=== PATIENT | male | born 1945 | race Caucasian/White ===

== ENCOUNTER 2017-07-07 09:24 | Inpatient (IN) | payer OTHER ==
[2017-06-08 14:22] VITALS: Ht 188 cm; Wt 135.2 kg
--- NOTE | 2017-06-08 14:39 | PAT Medication Instructions ---
Service Date Jun 08, 2017. Current Home Medication List Dulaglutide (Trulicity), 1 DOSE SQ JAN Ferrous Sulfate (Kp Ferrous Sulfate), 1 TAB PO QAM Glipizide (Glucotrol), 10 MG PO BID Insulin Detemir (Levemir), 2 UNITS SQ QPM Metformin Hcl (Glucophage), 1,000 MG PO BID Metoprolol Succ (Toprol Xl) (Toprol-Xl), 75 MG PO QAM Metoprolol Succ (Toprol Xl) (Toprol-Xl), 50 MG PO QPM Warfarin Sod (Jantoven), 1 DOSE PO UD Medication Instructions For Your Scheduled Surgery -Continue as directed: Dulaglutide (Trulicity), 1 DOSE SQ WEDNESDAY - Hold the following medications per your surgeon's instructions: Warfarin Sod (Jantoven), 1 DOSE PO UD - Hold the following medications 48 hours prior to surgery: Metformin Hcl (Glucophage), 1,000 MG PO BID - Hold the following medications the morning of surgery: Glipizide (Glucotrol), 10 MG PO BID Ferrous Sulfate (Kp Ferrous Sulfate), 1 TAB PO QAM - Take the following medications the morning of surgery with a sip of water: Metoprolol Succ (Toprol Xl) (Toprol-Xl), 75 MG PO QAM - Take the following medications as scheduled the night before surgery: Metoprolol Succ (Toprol Xl) (Toprol-Xl), 50 MG PO QPM Glipizide (Glucotrol), 10 MG PO BID Insulin Detemir (Levemir), 2 UNITS SQ QPM If you have any questions please call us at [phone] or [phone] or [phone]
[2017-06-08 15:22] LABS: BASO % 0.5 %; BASO ABS # 0.03 K/uL (0-0.2); COMPLETE YES; EOS % 2.5 %; HEMATOCRIT 40.1 % (42-52); IG% 0.5 %; LYMPH % 24.1 %; LYMPH ABS # 1.54 K/uL (1.2-3.4); MEAN CORPUSCULAR HEMOGLOBIN 31.3 pg (25-34); MEAN CORPUSCULAR HGB CONC 32.9 g/dl (32-36); MONO % 11.1 %; NEUT % 61.3 %; PLATELET COUNT 230 K/uL (130-400); RED BLOOD COUNT 4.22 M/uL (4.7-6.1); WHITE BLOOD COUNT 6.39 K/uL (4.8-10.8)
[2017-06-08 15:25] LABS: URINE APPEARANCE CLEAR (CLEAR); URINE BILIRUBIN NEG (NEG); URINE COLOR YELLOW; URINE NITRITE NEG (NEG); URINE PH 6.5 (4.5-7.5); UROBILINOGEN NEG (NEG); ZZUR CULT IF INDIC CLEAN CATCH NO
[2017-06-08 15:39] LABS: MANUAL MICROSCOPIC REQUIRED? NO; REVIEW REQ? NO
[2017-06-08 15:42] LABS: PARTIAL THROMBOPLASTIN RATIO 2.1; PROTHROMBIN TIME (PATIENT) 44.3 SECONDS (9.0-12.0)
[2017-06-08 15:50] LABS: BUN/CREATININE RATIO 15.1 (10-20); CREATININE 1.2 mg/dl (0.60-1.40); POTASSIUM 4.6 mmol/L (3.5-5.1)
[2017-06-08 15:57] LABS: INR 3.9 (0.9-1.1)
--- NOTE | 2017-06-08 16:01 | DIAGNOSTIC IMAGING REPORT ---
TWO VIEW CHEST CLINICAL HISTORY: Preoperative examination. FINDINGS: PA and lateral chest radiographs are compared to study dated 06/29/2016 and correlated with chest CT dated 07/03/2016. The heart is mildly enlarged and there is atherosclerotic calcification of the thoracic aorta. The pulmonary vasculature is noncongested. A calcified granuloma is again seen in the right upper lung. There is mild elevation of left hemidiaphragm with left basilar atelectasis. No airspace consolidation or pleural effusion is seen. There is no pneumothorax. The skeletal structures are osteopenic. Degenerative change is noted throughout the spine. IMPRESSION: Cardiomegaly with no active disease in the chest. Electronically signed by: Jefferson Eagle M.D. 06/08/2017 4:00 PM Dictated Date/Time: 06/08/2017 3:58 PM
--- NOTE | 2017-07-06 19:21 | HISTORY & PHYSICAL EXAMINATION ---
DATE OF ADMISSION: 07/07/2017 CHIEF COMPLAINT: Chronic right knee pain. HISTORY OF PRESENT ILLNESS: This is a 72-year-old male patient of Dr. Ledezma'javier complaining of chronic right knee pain, longstanding, now progressively getting worse. The patient has failed conservative treatment including anti-inflammatories, the use of Tylenol, and the use of a wrap. The patient is on Coumadin therapy. PAST MEDICAL HISTORY: Atrial fibrillation, sleep apnea, carpal tunnel syndrome, diabetes mellitus with insulin, osteoarthritis, and obesity. SOCIAL HISTORY: Nonsmoker, nondrinker. REVIEW OF SYSTEMS: The patient complains of chronic right knee pain, otherwise denies any shortness of breath, chest pain, nausea, vomiting, or any other joint complaints. FAMILY HISTORY: Noncontributory. MEDICATIONS: Include: 1. Metoprolol 25 mg daily. 2. Warfarin 1-1/2 tablets Wednesday and Wednesday, 1 tablet every other day. 3. Glipizide 10 mg b.i.d. 4. Metformin 1000 mg b.i.d. 5. Levemitz 1000mg bid daily. 6. trulitity 1.5 mg weekly. ALLERGIES: No known drug allergies. PHYSICAL EXAMINATION: GENERAL: Well-developed, well-nourished 72-year-old male patient, in no acute distress. He is alert and oriented x3 and pleasant. HEENT: Normocephalic, atraumatic. Extraocular motions are intact. Pupils are equal and reactive to light. HEART: Has an irregular heartbeat with a history of atrial fibrillation. LUNGS: Clear. ABDOMEN: Soft and nontender. Bowel sounds are present. EXTREMITIES: Right knee reveals limited range of motion of -5 to 115 degrees of range of motion and has a varus deformity. He has a mild effusion with crepitation. He has 5/5 strength and medial joint line tenderness. NEUROLOGICAL: Neurovascularly, he is intact in his right lower extremity. DIAGNOSES: Right knee end-stage osteoarthritis, history of atrial fibrillation, sleep apnea, carpal tunnel syndrome, diabetes mellitus with insulin, obesity. PLAN: The patient was advised of his diagnosis. Indications, risks, benefits, and postop course have all been reviewed. The patient wished to proceed with a right total knee arthroplasty. Necessary consent forms, preoperative testing and clearances will be obtained. ELVA
[~2017-07-07] VITALS: Ht 188 cm; Wt 135.2 kg
[2017-07-07] VITALS (8 sets, daily range): BP systolic 105–173; BP diastolic 65–95; PULSE 75–98; TEMP 36.6–36.9; O2SAT 93–97
[~2017-07-07 09:24] MED LIST: ACETAMINOPHEN 500 MG TAB PO SCH; BUPIVACAINE 0.25% 30 ML VIAL ONE; BUPIVACAINE 0.5 % 5 MG/1 ML PF 10ML VIAL ONE; CEFAZOLIN 3000MG IV PUSH 15 ML IV SCH; CeleBREX 200 MG CAP PO SCH; DULA0.5I SQ; FAMOTIDINE 20 MG TAB PO SCH; FERR1TAB13 PO; GABAPENTIN 300 MG CAP PO SCH; GLIP10TA9 PO; LACTATED RINGER'S 1000ML IV SCH; LVMI SQ; METF-384 PO; METO25TA3 PO; METOCLOPRAMIDE HCL 10 MG TAB PO SCH; ROPIVACAINE 5MG/ML 30 ML 150 MG, BUPIVACAINE 0.5% MPF INJ 30 ML, EpINEphrine HCL INJ 0.... INFIL SCH; WARF10TA4 PO
[2017-07-07] MEDS ORDERED: MIDAZOLAM HCL 1 MG/ML 2ML VIAL ONE (10:50)
[2017-07-07] MEDS ORDERED: FENTANYL CITRATE INJ 50 MCG/1 ML 2 ML VIAL ONE ×3 (10:50→14:15)
--- NOTE | 2017-07-07 10:53 | History & Physical Bridge Note ---
H&P Re-Evaluation Bridge Note: I have examined the patient, reviewed the History & Physical and in the interval since the performance of the History & Physical I have noted the following changes of clinical significance: No changes noted
[2017-07-07 10:54] LABS: PARTIAL THROMBOPLASTIN RATIO 1.2; PROTHROMBIN TIME (PATIENT) 11.1 SECONDS (9.0-12.0)
[2017-07-07] MEDS ORDERED: PROPOFOL IV EMULSION 10 MG/ML 20 ML VIAL IV ONE (10:54)
[2017-07-07] MEDS ORDERED: POVIDONE-IODINE OP SOLN 30 ML BTL ONE (12:53)
[2017-07-07] MEDS ORDERED: ORTHO JOINT ANESTHETIC ONE (12:53)
[2017-07-07] MEDS ORDERED: BACITRACIN 50000 UNIT VIAL ONE (12:53)
[2017-07-07] MEDS ORDERED: FLUMAZENIL 0.1 MG/1 ML 10 ML VIAL IV PRN (13:30)
[2017-07-07] MEDS ORDERED: ONDANSETRON INJ 2 MG/ML 2 ML VIAL IV PRN ×2 (13:30→15:45)
[2017-07-07] MEDS ORDERED: PROMETHAZINE HCL INJ 12.5 MG in SODIUM CHLORIDE 0.9% 50ML 50 ML IV PRN (13:30)
[2017-07-07] MEDS ORDERED: LABETALOL HCL IV 5 MG/ML 20ML IV PRN (13:30)
[2017-07-07] MEDS ORDERED: NALOXONE HCL 0.4 MG/1 ML VIAL/CARP IV PRN (13:30)
[2017-07-07] MEDS ORDERED: EpHEDrine SULFATE INJ 50 MG/ML AMP IV PRN (13:30)
[2017-07-07] MEDS ORDERED: HYDROmorphone INJ 1 MG/ML SYR IV PRN (13:30)
[2017-07-07] MEDS ORDERED: ATROPINE SULFATE 0.1 MG/ML 5ML SYR IV PRN (13:30)
[2017-07-07] MEDS ORDERED: LIDOCAINE HCL 2% 2 ML VIAL (20MG/ML) ONE (13:39)
[2017-07-07] MEDS ORDERED: PHENYLEPHRINE HCL INJ 10 MG/ML VIAL ONE (13:51)
--- NOTE | 2017-07-07 15:43 | [facility] Post Operative Brief Note ---
Immediate Operative Summary Operative Date Jul 07, 2017. Pre-Operative Diagnosis Right knee end-stage osteoarthritis,marvel ruiz Post-Operative Diagnosis Same Procedure(s) Performed Right total knee athroplasty Surgeon Dr Ledezma Veterinary Laboratory Technician Surgeon(s) Saurabh Thomson PA-C Estimated Blood Loss 25 ML Findings severe tricompartmental djd Specimens A. Right knee- bone and tissue Drains 2 hemovac Anesthesia general and regional and orthomix Complication(s) None Disposition Recovery Room / PACU
[2017-07-07] MEDS ORDERED: TRAMADOL HCL 50 MG TAB PO PRN (15:45)
[2017-07-07] MEDS ORDERED: DEXTROSE 50% 50 ML SYR IV PRN (15:45)
[2017-07-07] MEDS ORDERED: ZOLPIDEM TARTRATE 5 MG TAB PO PRN (15:45)
[2017-07-07] MEDS ORDERED: WARFARIN SOD PO SCH (15:45)
[2017-07-07] MEDS ORDERED: GLUCOSE 40% GEL 15 GM TUBE PO PRN (15:45)
[2017-07-07] MEDS ORDERED: CEFAZOLIN IV 2,000 MG in DEXTROSE 5% 50ML 50 ML IV SCH (15:45)
[2017-07-07] MEDS ORDERED: GLUCAGON FOR INJ 1 MG VIAL SQ PRN (15:45)
[2017-07-07] MEDS ORDERED: MoRPHine SULFATE 2 MG/ML CARP IV PRN (15:45)
[2017-07-07] MEDS ORDERED: MAGNESIUM HYDROXIDE SUSP 30 ML UDC PO PRN (15:45)
[2017-07-07] MEDS ORDERED: GLUCOSE 10 TABS/TUBE PO PRN (15:45)
[2017-07-07] MEDS ORDERED: SOD PHOSPHATE/SOD BIPHOSPHATE ENEMA 132 ML BTL PR PRN (15:45)
[2017-07-07] MEDS ORDERED: BISACODYL 10 MG SUPP PR PRN (15:45)
[2017-07-07] MEDS ORDERED: METOCLOPRAMIDE HCL INJ 5 MG/ML 2 ML VIAL IV PRN (15:45)
--- NOTE | 2017-07-07 16:07 | Anesthesiology Progress Note ---
Anesthesia Post Op Note Date & Time Jul 07, 2017 at 16:07 Vital Signs Pain Intensity: 3 Vital Signs Past 12 Hours Date Time Temp Pulse Resp B/P (MAP) Pulse Ox O2 Delivery O2 Flow Rate FiO2 07/07/17 15:55 87 16 147/82 95 Nasal Cannula 3 07/07/17 15:45 36.3 93 12 130/71 97 Oxymask 10 07/07/17 15:35 36.3 84 12 130/70 97 Oxymask 10 07/07/17 10:24 36.8 95 18 161/95 96 Room Air Notes Mental Status: alert / awake / arousable, participated in evaluation Pt Amnestic to Procedure: Yes Nausea / Vomiting: adequately controlled Pain: adequately controlled Airway Patency, RR, SpO2: stable & adequate BP & HR: stable & adequate Hydration State: stable & adequate Anesthetic Complications: no major complications apparent
--- NOTE | 2017-07-07 16:08 | DIAGNOSTIC IMAGING REPORT ---
R KNEE 1 OR 2 VIEWS ROUTINE CLINICAL HISTORY: AP/LATERAL IN PACU RIGHT KNEE postoperative COMPARISON: None. DISCUSSION: Anatomic alignment status post total right knee replacement. Good contact between prosthetic and underlying bone. Surgical drains are in position. Expected soft tissue postoperative change. IMPRESSION: Anatomic alignment status post total right knee replacement The above report was generated using voice recognition software. It may contain grammatical, syntax or spelling errors. Electronically signed by: Saurabh Mireles M.D. 07/07/2017 4:07 PM Dictated Date/Time: 07/07/2017 4:07 PM
[2017-07-07] MEDS ORDERED: MoRPHine SULFATE 4 MG/ML 1 ML CARP\\VIAL IV PRN (16:45)
[2017-07-07] MEDS: INSULIN ASPART 100 UNITS/ML 3 ML PEN SC SCH ×3 (17:15→22:21)
[2017-07-07] MEDS ORDERED: WARFARIN SOD 7.5 MG TAB PO ONE (18:30)
[2017-07-07] MEDS: SODIUM CHLORIDE 0.9% 1000ML 1,000 ML IV SCH (18:47)
[2017-07-07] MEDS ORDERED: PNEUMOCOCCAL ADMINISTRATION CHARGE ONE (20:00)
[2017-07-07] MEDS ORDERED: PNEUMOCOCCAL POLYSACCHARIDES 25 MCG/0.5 ML VIAL/SYR IM. ONE (20:00)
--- NOTE | 2017-07-07 20:41 | Progress Note ---
Subjective Date of Service: Jul 07, 2017. Subjective Pt evaluation today including: conversation w/ patient, physical exam, chart review, lab review, review of inpatient medication list feeling good overall no significant pain no trouble w DM or afib no complaints Review of Systems all other ROS otherwise negative except for as above Objective Vital Signs Date Time Temp Pulse Resp B/P (MAP) Pulse Ox O2 Delivery O2 Flow Rate FiO2 07/07/17 19:54 36.7 75 16 121/70 (87) 97 Nasal Cannula 3.0 07/07/17 18:54 36.7 98 18 118/72 (87) 95 Nasal Cannula 3.0 07/07/17 17:52 36.9 95 16 114/79 (91) 96 Nasal Cannula 3.0 07/07/17 17:25 36.6 89 16 145/77 (99) 97 Nasal Cannula 2.0 07/07/17 16:51 36.8 96 16 173/65 (101) 97 Nasal Cannula 2.0 07/07/17 16:50 97 Nasal Cannula 2.0 07/07/17 16:50 97 Nasal Cannula 2.0 07/07/17 16:35 98 16 133/74 96 Nasal Cannula 2 07/07/17 16:25 98 16 134/68 96 Nasal Cannula 2 07/07/17 16:15 98 16 117/71 96 Nasal Cannula 2 07/07/17 16:05 36.5 92 16 156/68 95 Nasal Cannula 2 07/07/17 15:55 87 16 147/82 95 Nasal Cannula 3 07/07/17 15:45 36.3 93 12 130/71 97 Oxymask 10 07/07/17 15:35 36.3 84 12 130/70 97 Oxymask 10 07/07/17 10:24 36.8 95 18 161/95 96 Room Air Physical Exam General Appearance: no apparent distress Eyes: EOMI ENT: hearing grossly normal Neck: trachea midline Respiratory/Chest: no respiratory distress, no accessory muscle use Extremities: normal range of motion Neurologic/Psychiatric: documentation designer II-XII nml as tested, alert, normal mood/affect Skin: normal color, warm/dry Laboratory Results Last 24 Hours Test 07/07/17 10:08 07/07/17 10:15 07/07/17 15:53 07/07/17 18:48 Bedside Glucose 144 mg/dl 165 mg/dl 264 mg/dl Prothrombin Time 11.1 SECONDS Prothromb Time International Ratio 1.0 Activated Partial Thromboplast Time 30.6 SECONDS Partial Thromboplastin Ratio 1.2 Assessment and Plan afib - continue metoprolol for rate control, resuming warfarin anticoagulation DM - sugars all reasonable except for one late high - tighten carb ratio, continue current care otherwise and follow. A1c 7.0 PITO - CPAP DVT proph - anticoagulation
--- NOTE | 2017-07-07 21:24 | OPERATIVE REPORT ---
DATE OF OPERATION: 07/07/2017 INDICATION FOR PROCEDURE: The patient is a 72-year-old male who presents with chronic progressive osteoarthritis in his right knee. He has already had a successful left knee replacement and did well with that. The right knee, he has [id number] both patellofemoral joint and in the medial compartment and he has lateral patellar tracking with patellofemoral malalignment. He also has Cristina-Schlatter's disease. PREOPERATIVE DIAGNOSES: End-stage tricompartmental osteoarthritis right knee, patellofemoral malalignment, Cristina-Schlatter's disease. POSTOPERATIVE DIAGNOSES: End-stage tricompartmental osteoarthritis right knee, patellofemoral malalignment, Cristina-Schlatter's disease. PROCEDURE: Right total knee arthroplasty including lateral release. SURGEON: Tae Ledezma MD. CONCRETE PIPE MAKING MACHINE OPERATOR: CAMILA Vera. ANESTHESIA: Attempted spinal followed by general, adductor nerve block and Orthomix injection. DRAINS: Two Hemovac. ESTIMATED BLOOD LOSS: 25 mL. OPERATIVE PROCEDURE: The patient was taken to the operating room, anesthetized under a general anesthetic, he already had an adductor nerve block in the holding area. He was placed supine on the operating room table and pneumatic tourniquet was placed on his right upper thigh. His right lower extremity was examined under anesthesia. He had a 15 degree flexion contracture with flexion to about 115 degrees. He had Magna-Schlatter's disease prominent at the tibial tubercle. He did have a moderate effusion. He had no gross instability with a stiff knee. His right lower extremity was prepped and draped with ChloraPrep. The leg was elevated, exsanguinated with Esmarch bandage. Pneumatic tourniquet was raised to 350 mmHg. Anterior incision was made across the right knee. Skin was incised sharply. Subcutaneous flaps were elevated. The patient had a thickened prepatellar bursitis which was chronic over the Magna-Schlatter's and patellar tendon area. Some of this thickened bursa was resected. He also had some chronic scarred fat tissue. An incision was made through the medial retinaculum and extended up in the mid third of the quadriceps tendon and extended down to the medial tibial tubercle. Intraarticular findings demonstrated he had severe tricompartmental DJD, [id number] in the medial compartment with some bone loss. He had [id number] in the patellofemoral joint with some bone loss of the lateral tracking patella. He had tricompartmental disease. He had notch stenosis. He had a chronic ACL tear. He had chronic medial meniscus tear. A [employer] Journey 2.0, total knee arthroplasty system using Appfolio MR templating, templating it for a size 8 femur and 7 tibia. I exposed the knee by excising the scar and patellar fat pad and excising the meniscal remnants and excising the PCL. We had to excise some scarred synovium in the suprapatellar pouch area and some of the fat pad over the anterior femur for placement of the component. Lateral synovial bands were released. The femur was exposed with retractors. The custom femoral cutting block was pinned in position. The distal femoral cut was made. Then we were able to fully extend the knee, mildred the patella to do a subperiosteal peel lateral release. Exposed the patellar bone and some mild bone loss in the lateral side of the patella. Patella width was measured and width was reproduced using a freehand cut technique. The patella was sized for a 41 patella. I drilled the holes for the patella component. Any excess lateral facet was beveled off to prevent any impingement. All osteophytes removed around the patella. The femur was re-exposed, the 5-in-1 cutting block was placed. The anterior, posterior and chamfer cuts were made for the size 8 femur. Then the tibia was subluxed with some difficulties due to a very stiff knee and a lot of large osteophytes on the posterior tibia. The custom tibial cutting block was placed and then the proximal tibial cut was made. Then we used the lamina bag worker to verify ligamentous balance in extension and flexion. The tibia was exposed and then a 7 tibial trial was externally rotated in line with the tibial tubercle, pinned in position. The punch for the stem was used and then the 8 femoral trial was inserted, centered and the notch cutting device was used and a collet was placed and 12 insert gave balanced ligaments through full range of motion and patella still had some lateral liftoff in maximum flexion, so I had to do a formal lateral release and the lateral retinaculum was released leaving the synovium intact and this allowed the patella track centrally through full range of motion. The trials were removed. The Orthomix anesthetic cocktail was injected per protocol. The knee was copiously irrigated with pulsatile lavage antibiotic solution with bacitracin. Then, the final components was cemented with Simplex G cement. The final components were the [employer] Journey 2.0 right posterior stabilized size 8 Oxinium femoral component, the 7 tibial baseplate, the 12 mm high flex posterior stabilized poly insert and a 41 mm patella domed component. While cement cured, the knee was irrigated with a Betadine soak. The knee was copiously irrigated with antibiotic solution and bacitracin after cement cured. Two drains were brought out laterally and connected to 2 Hemovac. The quadriceps tendon and medial retinaculum were closed with [id number] #1 Vicryl sutures. The knee was taken through a full range of motion and appeared secure. The subcutaneous tissue was closed with interrupted 2-0 Vicryl sutures, skin closed with gabbi. Sterile dressings applied including Silverlon dressing. The patient tolerated the procedure well. He had about 25 mL of blood loss. Saurabh Thomson PA-C, was my first line production supervisor and he functioned as first line production supervisor for the entire procedure. He assisted in patient positioning, prepping, draping, leg positioning, soft tissue retraction, instrument management and assisted in the subcutaneous skin closure and will participate in the postoperative care of the patient. I attest to the content of the Intraoperative Record and any orders documented therein. Any exception s are noted below.
[2017-07-07] MEDS: DOCUSATE SODIUM 100 MG CAP PO SCH (22:10)
[2017-07-07] MEDS: METOPROLOL SUCC 50MG EXT REL TAB PO SCH (22:12)
[2017-07-07] MEDS: ACETAMINOPHEN 500 MG TAB PO SCH (22:15)
[2017-07-07] MEDS: CEFAZOLIN IV 2,000 MG in SYRINGE 0 ML IV SCH (22:21)
[2017-07-08] MEDS: SODIUM CHLORIDE 0.9% 1000ML 1,000 ML IV SCH ×2 (02:26→11:53)
[2017-07-08 04:00] VITALS: BP 116/72; PULSE 76; TEMP 36.6; O2SAT 98
[2017-07-08] MEDS: ACETAMINOPHEN 500 MG TAB PO SCH ×3 (05:36→22:22)
[2017-07-08] MEDS: CEFAZOLIN IV 2,000 MG in SYRINGE 0 ML IV SCH (05:43)
[2017-07-08 06:10] LABS: HEMATOCRIT 33.7 % (42-52); MEAN CORPUSCULAR HEMOGLOBIN 31.7 pg (25-34); MEAN CORPUSCULAR HGB CONC 32.3 g/dl (32-36); MEAN PLATELET VOLUME 9.9 fL (7.4-10.4); PLATELET COUNT 215 K/uL (130-400); RED BLOOD COUNT 3.44 M/uL (4.7-6.1); WHITE BLOOD COUNT 12.85 K/uL (4.8-10.8)
[2017-07-08 06:39] LABS: PROTHROMBIN TIME (PATIENT) 10.9 SECONDS (9.0-12.0)
[2017-07-08 06:40] LABS: BUN/CREATININE RATIO 19.6 (10-20); CALCIUM 8.1 mg/dl (8.5-10.1); CREATININE 1.45 mg/dl (0.60-1.40); POTASSIUM 4.6 mmol/L (3.5-5.1)
[2017-07-08 07:35] VITALS: BP 135/74; PULSE 86; TEMP 36.6; O2SAT 95
[2017-07-08] MEDS: TRULICITY: ORDER AWAITING ACTION SCH ×3 (08:00→16:00)
--- NOTE | 2017-07-08 08:01 | Orthopedic Progress Note ---
Orthopedic Progress Note Date of Service Jul 08, 2017. Subjective Post OP Day: 1 Reports: feeling well Objective N/V intact, dressing C/D/I (Hemovac in place), toes mobile Date Time Temp Pulse Resp B/P (MAP) Pulse Ox O2 Delivery O2 Flow Rate FiO2 07/08/17 04:00 36.6 76 18 116/72 (87) 98 Room Air 07/08/17 00:30 Room Air 07/07/17 23:05 36.8 95 18 105/69 (81) 93 Room Air 07/07/17 19:54 36.7 75 16 121/70 (87) 97 Nasal Cannula 3.0 07/07/17 18:54 36.7 98 18 118/72 (87) 95 Nasal Cannula 3.0 07/07/17 17:52 36.9 95 16 114/79 (91) 96 Nasal Cannula 3.0 07/07/17 17:25 36.6 89 16 145/77 (99) 97 Nasal Cannula 2.0 07/07/17 16:51 36.8 96 16 173/65 (101) 97 Nasal Cannula 2.0 07/07/17 16:50 97 Nasal Cannula 2.0 07/07/17 16:50 97 Nasal Cannula 2.0 07/07/17 16:35 98 16 133/74 96 Nasal Cannula 2 07/07/17 16:25 98 16 134/68 96 Nasal Cannula 2 07/07/17 16:15 98 16 117/71 96 Nasal Cannula 2 07/07/17 16:05 36.5 92 16 156/68 95 Nasal Cannula 2 07/07/17 15:55 87 16 147/82 95 Nasal Cannula 3 07/07/17 15:45 36.3 93 12 130/71 97 Oxymask 10 07/07/17 15:35 36.3 84 12 130/70 97 Oxymask 10 07/07/17 10:24 36.8 95 18 161/95 96 Room Air Laboratory Results 24 Hours: Test 07/07/17 10:15 07/08/17 05:39 Prothromb Time International Ratio 1.0 1.0 Prothrombin Time 11.1 SECONDS 10.9 SECONDS Hematocrit 33.7 % Hemoglobin 10.9 g/dL Assessment & Plan Assessment: 72 yo male stable POD #1 s/p right TKA Plan: 1. Med management 2. DVT prophylaxis- Coumadin, SCDs 3. PT/OT 4. D/C planning- home w/ HH
[2017-07-08] MEDS: FERROUS SULFATE 325 MG TAB PO SCH (08:23)
[2017-07-08] MEDS: MULTIVITAMIN TAB PO SCH (08:23)
[2017-07-08] MEDS: DOCUSATE SODIUM 100 MG CAP PO SCH ×2 (08:23→21:45)
[2017-07-08] MEDS: PANTOprazole SOD 40 MG TAB PO SCH (08:24)
[2017-07-08] MEDS: METOPROLOL SUCC 25MG EXT REL TAB PO SCH (08:25)
[2017-07-08] MEDS: INSULIN ASPART 100 UNITS/ML 3 ML PEN SC SCH ×4 (08:30→21:47)
[2017-07-08 12:10] VITALS: BP 113/69; PULSE 75; TEMP 37.1; O2SAT 95
[2017-07-08 15:28] VITALS: BP 108/62; PULSE 85; TEMP 37.1; O2SAT 96
[2017-07-08] MEDS ORDERED: WARFARIN SOD 10 MG TAB PO SCH (16:00)
[2017-07-08] MEDS: OXYCODONE HCL IR 5 MG TAB (IMMEDIATE RELEASE) PO PRN (18:40)
[2017-07-08 22:19] VITALS: BP 120/76; PULSE 76
[2017-07-08] MEDS: METOPROLOL SUCC 50MG EXT REL TAB PO SCH (22:20)
[2017-07-08 23:09] VITALS: BP 117/70; PULSE 92; TEMP 37; O2SAT 94
[2017-07-09] MEDS: OXYCODONE HCL IR 5 MG TAB (IMMEDIATE RELEASE) PO PRN ×3 (00:41→10:23)
[2017-07-09] MEDS: ACETAMINOPHEN 500 MG TAB PO SCH (05:40)
[2017-07-09 05:59] LABS: INR 1.2 (0.9-1.1); PROTHROMBIN TIME (PATIENT) 12.7 SECONDS (9.0-12.0)
[2017-07-09 06:06] LABS: HEMATOCRIT 29.1 % (42-52); MEAN CELL VOLUME 97.3 fL (80-100); MEAN CORPUSCULAR HEMOGLOBIN 31.1 pg (25-34); MEAN PLATELET VOLUME 9.6 fL (7.4-10.4); PLATELET COUNT 184 K/uL (130-400); RED BLOOD COUNT 2.99 M/uL (4.7-6.1); WHITE BLOOD COUNT 9.62 K/uL (4.8-10.8)
[2017-07-09 06:27] LABS: BUN/CREATININE RATIO 20.9 (10-20); CREATININE 1.17 mg/dl (0.60-1.40); POTASSIUM 4.6 mmol/L (3.5-5.1)
[2017-07-09 06:39] VITALS: BP 133/80; PULSE 90; TEMP 36.7; O2SAT 95
[2017-07-09] MEDS: TRULICITY: ORDER AWAITING ACTION SCH ×2 (07:27)
--- NOTE | 2017-07-09 07:32 | Orthopedic Progress Note ---
Orthopedic Progress Note Date of Service Jul 09, 2017. Subjective Post OP Day: 2 Reports: feeling well, pain controlled w PO medications, Denies: complaints, chest pain, SOB, nausea / vomiting, light headedness, calf pain Objective calves soft nontender, N/V intact, capillary refill less than 2 sec., dressing C /D/I, A&O x3, toes mobile Silverlon in tact. Date Time Temp Pulse Resp B/P (MAP) Pulse Ox O2 Delivery O2 Flow Rate FiO2 07/09/17 06:39 36.7 90 16 133/80 (97) 95 Room Air 07/09/17 01:39 Room Air 07/08/17 23:09 37.0 92 16 117/70 (86) 94 Room Air 07/08/17 22:19 76 16 120/76 (91) 07/08/17 16:15 Room Air 07/08/17 15:28 37.1 85 17 108/62 (77) 96 Room Air 07/08/17 12:10 37.1 75 16 113/69 (84) 95 Room Air 07/08/17 07:35 36.6 86 16 135/74 (94) 95 Room Air Laboratory Results 24 Hours: Test 07/09/17 05:38 Hematocrit 29.1 % Hemoglobin 9.3 g/dL Prothromb Time International Ratio 1.2 Prothrombin Time 12.7 SECONDS Assessment & Plan Assessment: 72 yo male stable POD #2 s/p right TKA Plan: 1. Med management 2. DVT prophylaxis- Coumadin, SCDs 3. PT/OT 4. D/C planning- home w/ HH today
[2017-07-09] MEDS: INSULIN ASPART 100 UNITS/ML 3 ML PEN SC SCH (07:33)
[2017-07-09] MEDS: FERROUS SULFATE 325 MG TAB PO SCH (07:33)
[2017-07-09] MEDS: METOPROLOL SUCC 25MG EXT REL TAB PO SCH (07:34)
[2017-07-09] MEDS: PANTOprazole SOD 40 MG TAB PO SCH (07:34)
[2017-07-09] MEDS: MULTIVITAMIN TAB PO SCH (07:34)
[2017-07-09] MEDS ORDERED: ONDA8TAB6 PO (07:35)
[2017-07-09] MEDS ORDERED: RXC5 PO (07:35)
[2017-07-09] MEDS ORDERED: ACET-24 PO (07:35)
--- NOTE | 2017-07-09 07:37 | Discharge Instructions ---
Discharge Instructions Date of Service Jul 09, 2017. Admission Reason for Admission: Right Knee Degenerative Joint Disease Discharge Discharge Diagnosis / Problem: Right TKA Discharge Goals Goal(s): Improve function Activity Recommendations Activity Limitations: as noted below . Instructions / Follow-Up Instructions / Follow-Up ACTIVITY RECOMMENDATIONS: SELF CARE INSTRUCTIONS AFTER TOTAL KNEE REPLACEMENT A. You may need to continue a physical therapy program after discharge from the hospital. There are several options available to you. Your doctor will assist you in selecting the best one for you. 1. An out-patient facility 2 to 3 times a week for therapy or home therapy. 2. Continue working on all exercises taught to you in the hospital. Your goals should be to increase bending of your knee to 90 degrees and beyond and to fully straighten your knee. B. You may progress at your own pace from walking with a walker or crutches to a cane; then to no assistive devices. C. Make walking a part of your daily routine. Be up as much as comfortable with rest periods throughout the day. Rest with leg elevation is very important. Use the ice wrap frequently for the first 3-4 weeks. D. There are no restrictions on activities. You may ride in a car, shop, participate in flight control specialist and all social activities. E. Wear the long elastic stockings (MACY hose) 20 hours a day for 2 weeks after surgery. They can be removed several times a day for laundering and for a bath. F. You may shower, no tub baths until cleared by your doctor. SPECIAL CARE INSTRUCTIONS: VERY IMPORTANT TO READ AND REVIEW A. There are a few signs you need to watch for after you are home. Call [facility] if you notice any of the followin. Increased severe knee pain. Some pain is expected especially when you exercise. 2. Increased swelling in your leg or knee; pain or swelling of the calf muscle in either lower leg. 3. Any fluid drainage from the incision. 4. Shortness of breath or chest pain. B. Please call [facility] at if you have any concerns or questions about your operation or recovery. The doctor or his nurse will return your call promptly. C. You must take antibiotics before dental work, bladder, bowel or other surgery. Your doctor will provide you with a permanent care to carry describing this precaution. IMPORTANT: * REMEMBER TO TAKE ASPIRIN, 81 MG, TWICE DAILY FOR 4 WEEKS UNLESS OTHERWISE DIRECTED. THIS IS YOUR BLOOD THINNER. * HIGH RISK PATIENTS MAY BE PRESCRIBED A STRONGER BLOOD THINNER. THIS WILL BE PROVIDED AT DISCHARGE. * CALL IF INCREASED PAIN, REDNESS, DRAINAGE OR FEVER GREATER THAT 101. * WEAR MACY HOSE 20 HOURS PER DAY FOR 2 WEEKS. * YOU MAY HAVE A LARGE BAND-AID LIKE DRESSING (SILVERON). THIS WILL REMAIN ON YOUR INCISION FOR 7 DAYS, THEN CAN BE REMOVED. IF INCISION IS LEAKING THROUGH DRESSING, CALL THE OFFICE . FOLLOW UP VISIT: If appointment is not already scheduled: Please call [facility] to make a follow-up appointment for 2 weeks after your surgery at . Current Hospital Diet Patient's current hospital diet: Diabetes Type 2 Diet Discharge Diet Recommended Diet: Diabetes Type 2 Diet Procedures Procedures Performed: Right total knee athroplasty Pending Studies Studies pending at discharge: no Laboratory Results Hemoglobin A1c Test 06/08/17 14:01 Range/Units Estimated Average Glucose 154 mg/dl Hemoglobin A1c 7.0 H 4.5-5.6 % Medical Emergencies . Who to Call and When: Medical Emergencies: If at any time you feel your situation is an emergency, please call 911 immediately. . Non-Emergent Contact Non-Emergency issues call your: Primary Care Provider . "Provider Documentation" section prepared by Saurabh Thomson. . VTE Core Measure Inpt VTE Proph given/why not?: Warfarin (Coumadin)Codey, SCD's [place] Drug Monitoring Program Search Results: patient reviewed within database, no issues identified
[2017-07-09 07:50] VITALS: BP 142/72; PULSE 94; TEMP 36.7; O2SAT 92
[2017-07-09 08:23] VITALS: O2SAT 92
[2017-07-09 09:08] VITALS: BP 142/72; PULSE 94; TEMP 36.7; O2SAT 92
[2017-07-09] MEDS: DOCUSATE SODIUM 100 MG CAP PO SCH (09:21)
[2017-07-09] MEDS ORDERED: WARFARIN SOD 7.5 MG TAB PO SCH (16:00)
== END 2017-07-09 11:02 | disposition home health service (06) | DRG 470 ==
LOC: C.ACU 09:24 → C.3E 11:01 → ENRESERV 15:58
PROVIDERS: ADMIT Orthopaedic Surgery Sports Medicine; ATTEND Orthopaedic Surgery Sports Medicine
PROC: 0SRC0J9 Replacement of Right Knee Joint with Synthetic Substitute, Cemented, Open Approach (ICD-10-PCS; principal; 2017-07-07 12:00)
PROC: 0MBN0ZZ Excision of Right Knee Bursa and Ligament, Open Approach (ICD-10-PCS; principal; 2017-07-07 12:00)
DX: M17.11 Unilateral primary osteoarthritis, right knee (principal); M92.51 Juvenile osteochondrosis of proximal tibia; M25.461 Effusion, right knee; S83.511S Sprain of anterior cruciate ligament of right knee, sequela; M23.203 Derangement of unspecified medial meniscus due to old tear or injury, right knee; X58.XXXS Exposure to other specified factors, sequela; M71.9 Bursopathy, unspecified; I48.91 Unspecified atrial fibrillation; I10 Essential (primary) hypertension; E11.42 Type 2 diabetes mellitus with diabetic polyneuropathy; E11.65 Type 2 diabetes mellitus with hyperglycemia; G47.33 Obstructive sleep apnea (adult) (pediatric); E66.9 Obesity, unspecified; Z68.38 Body mass index [BMI] 38.0-38.9, adult; Z23 Encounter for immunization; Z96.652 Presence of left artificial knee joint; Z79.01 Long term (current) use of anticoagulants; Z79.4 Long term (current) use of insulin; Z79.899 Other long term (current) drug therapy